=== PATIENT | female | born 1960 | race Asian ===

== ENCOUNTER → 2017-02-04 | Outpatient (CLI) | payer OTHER ==
[~2017-02-04] MED LIST: GABA300C PO; LEVO25CA2 PO; OMEP-110 PO; SULF1TAB3 PO; TAMO20TA PO; VENL37.52 PO
== END | disposition home or self-care (01) ==
LOC: CFH 13:06 → EDSTATUS 13:15
PROVIDERS: ATTEND Specialist
DX: Z12.31 Encounter for screening mammogram for malignant neoplasm of breast (principal)
CPT/HCPCS: G0202

== ENCOUNTER → 2019-08-20 | Outpatient (CLI) | payer MEDICARE ==
[~2019-08-20] MED LIST changes: +SULF-169 PO; -SULF1TAB3 PO
== END | disposition home or self-care (01) ==
LOC: CFH 09:11
PROVIDERS: ATTEND Internal Medicine Hematology & Oncology
DX: C50.912 Malignant neoplasm of unspecified site of left female breast (principal); Z85.3 Personal history of malignant neoplasm of breast
CPT/HCPCS: 76641

== ENCOUNTER → 2020-06-23 | Outpatient (CLI) | payer OTHER, MEDICARE | END | disposition home or self-care (01) | LOC: CFH 14:49 | PROVIDERS: ATTEND Internal Medicine Hematology & Oncology | DX: Z12.31 Encounter for screening mammogram for malignant neoplasm of breast (principal) | CPT/HCPCS: 77063; 77067 ==